=== PATIENT | male | born 1995 | race African-American/Black ===

== ENCOUNTER 2017-06-22 02:18 | Emergency (ER) | payer SELFPAY ==
[~2017-06-22] VITALS: Ht 177.8 cm; Wt 80.0 kg
[2017-06-22 02:20] VITALS: BP 135/83; PULSE 74; RESP 15; TEMP 98; O2SAT 100
--- NOTE | 2017-06-22 03:00 | PD ---
HPI Chief Complaint: Oral / Dental Pain or Problem Time Seen by Provider: 02:37 Travel History International Travel<30 days: No Contact w/Intl Traveler<30days: No Traveled to known affect area: No History of Present Illness HPI 21-year-old male presents to the emergency department for evaluation a left- sided facial pain. 6 out of 10, throbbing. Patient states it begins by his ear and radiates towards his lips. This is been intermittently occurring for the last several days. Denies any trauma. No fever or chills. No dental pain. No dental caries. No ear pain. He has not taken anything for the pain. He denies any difficulty chewing. He denies any sinus congestion or pressure. He has no other symptoms to report. History Past Medical Histgory Medical History: Denies Significant Hx Past Surgical History Surgical History: No Previous Surgery Social History Alcohol Use: Yes (OCC) Tobacco Use: No Allergies-Medications (Allergen,Severity, Reaction): Coded Allergies: No Known Allergies (Unverified , 06/22/17) Reported Meds & Prescriptions Reported Meds & Active Scripts Active No Active Prescriptions or Reported Medications Review of Systems Except as stated in HPI: all other systems reviewed are Neg Physical Exam Narrative GENERAL: Well-nourished, well-developed male patient, in no acute distress SKIN: Focused skin assessment warm/dry. HEAD: Normocephalic. No erythema or edema. Patient has no crepitus with opening and closing of the mouth over the TMJ. EARS: Bilateral pinnae and external canals appear within normal limits. Right tympanic membranes without erythema, dullness or perforation. Left ear is noted to have a serous effusion. EYES: No scleral icterus. No injection or drainage. ENT: Mucosa pink and moist. No erythema or exudates. No uvular edema. No uvular , palatal, or tonsillar deviation. Airway patent. Nasal turbinates appear normal without nasal blood, purulent drainage or septal hematoma. DENTAL: No loose or chipped teeth. No malocclusion. NECK: Supple, trachea midline. No JVD or lymphadenopathy. CARDIOVASCULAR: Regular rate and rhythm without murmurs, gallops, or rubs. RESPIRATORY: Breath sounds equal bilaterally. No accessory muscle use. Data Data Last Documented VS Vital Signs Date Time Temp Pulse Resp B/P (MAP) Pulse Ox O2 Delivery O2 Flow Rate FiO2 06/22/17 02:20 98.0 74 15 135/83 (100) 100 Room Air MDM Medical Screen Exam Complete: Yes Emergency Medical Condition: No Differential Diagnosis Left-sided facial pain, herpetic syndrome versus trigeminal neuralgia versus TMJ Narrative Course 21-year-old male presents to the emergency department for evaluation a left- sided face pain. There has been no trauma. There is no visible rash or injury. There is no dental abscess. No signs of a sinus infection. Patient does have a serous effusion behind the left tympanic membrane. I have encouraged the patient to take [id number] ibuprofen and consider an antihistamine. We went over what could be causing this but at this time I told him I do not know for sure. However there are no urgent or emergent needs for medical intervention identified. A medical screening exam was performed: At the time of evaluation the presenting medical condition was determined not to be of an emergent nature. The patient was given the option of receiving additional care, but declined. Patient was given options for additional community resources from which to obtain care. The Patient Has Been advised to seek medical attention for their presenting complaint. The patient has been advised to return to the ER at any time if an emergent condition develops. Primary Impression: Encounter for medical screening examination Scripts No Active Prescriptions or Reported Meds Condition: Blanca Collins Jun 22, 2017 02:59
== END 2017-06-22 10:06 | disposition left against medical advice (07) ==
LOC: NEPD 02:18
DX: R51 Headache (principal); H65.92 Unspecified nonsuppurative otitis media, left ear
CPT/HCPCS: 99281